=== PATIENT | male | born 1940 | race Caucasian/White ===

== ENCOUNTER 2018-05-13 07:58 | Emergency (ER) | payer OTHER ==
--- OUTSIDE RECORDS SUMMARY | 2018-05-13 08:18 | XMS REPORT ---
:1940 Author Organization eClinicalWorks Care Team Providers Name Role Phone Cristian Morales Provider Role Unavailable Allergies, Adverse Reactions, Alerts Substance Reaction Event Type sulfamethizole Info Not Available Non Drug Allergy Encounters Encounter Location Date cgms results Orlando Pastrana MD Sep 18, 2013 Problems Problem Type Condition ICD-9 Code Onset Dates Condition Status Problem Hyperlipidemia 272.4 Active Assessment Diabetes Type 2 Uncontrolled 250.02 Active Problem Diabetes Type 2 Uncontrolled 250.02 Active Assessment Hyperlipidemia 272.4 Active Assessment Atrial fibrillation 427.31 Active Medications Medication Code System Code Instructions Start Date End Date Status Dosage metformin MULTUM 94193 500 mg orally 2 Active 2 tab(s) times a day Tradjenta MULTUM 523990 5 mg orally once Sep 18, Active 1 tab(s) a day 2012 glipizide MULTUM 31107 5 mg orally twice Inactive 2 tablets a day Plavix MULTUM 75022 75 mg orally once Active 1 tab(s) a day Zocor MULTUM 1546 20 mg orally once Active 1 tab(s) a day (at bedtime) glimepiride MULTUM 06713 4 mg orally once Sep 18, Active 1 tab(s) a day 2013 Keflex MULTUM 1271 250 mg orally 3 Sep 18, Active 1 cap(s) times a day 2012 Social History Social History Element Qualifiers Date Reported Language: . Mexican Sep 18, 2013 Marital Status: . Sep 18, 2013 Caffeine: yes. frequency:, 1 c/day Sep 18, 2013 Exercise: no. Sep 18, 2013 Smoking/Tobacco Use: no. Patient is a: Never Smoker Sep 18, 2013 Alcohol: no. 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 Sep 18, 2013 Family history Qualifier Description Comment Date Reported Maternal Grand Mother Comment not available Sep 18, 2013 Paternal Grand Mother Comment not available Sep 18, 2013 Siblings alive 1 bro, 2 sis Sep 18, 2013 Maternal Grand Father Comment not available Sep 18, 2013 Children alive 2 daughters, 1 son, All Adopted Sep 18, 2013 Father Comment not available Sep 18, 2013 Paternal Grand Father Comment not available Sep 18, 2013 Mother DM Sep 18, 2013 Other: Foster Child Sep 18, 2013 Vital Signs Date/Time: Sep 18, 2013 Weight 183 lbs Height 69 inches Blood Pressure Diastolic 88 mm Hg Blood Pressure Systolic 134 mm Hg Results Finger stick glucose Blood Sugar(- ) FBS 171 Summary Purpose eClinicalWorks Submission
--- OUTSIDE RECORDS SUMMARY | 2018-05-13 08:18 | XMS REPORT ---
:1940 Author Organization eClinicalWorks Care Team Providers Name Role Phone Cristian Morales Provider Role Unavailable Encounters Encounter Location Date Unknown Orlando Pastrana MD Jan 05, 2014 cgms results Orlando Pastrana MD Sep 18, 2013 6wks x dm after cmgs results Orlando Pastrana MD Nov 06, 2013 Unknown Orlando Pastrana MD Dec 04, 2013 Problems Problem Type Condition ICD-9 Code Onset Dates Condition Status Problem BPH (Benign prostatic 600.00 Active hypertrophy) Problem Diabetes Type 2 Uncontrolled 250.02 Active Problem Atrial fibrillation 427.31 Active Problem Hyperlipidemia 272.4 Active Social History Social History Element Qualifiers Date Reported Language: . Estonian Nov 06, 2013 Marital Status: . Nov 06, 2013 Caffeine: yes. frequency:, 1 c/day Nov 06, 2013 Exercise: no. Nov 06, 2013 Smoking/Tobacco Use: no. Patient is a: Never Smoker Nov 06, 2013 Alcohol: no. 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
--- OUTSIDE RECORDS SUMMARY | 2018-05-13 08:18 | XMS REPORT | Continuity of Care Document ---
:1940 Author Organization Interface Problems Problem Status Onset Classification Date Comments Source Date Reported AORTIC Active 05/14/20 Condition 10/29/2013 Medical INSUFFICIENCY 12 Group MITRAL Active 05/14/20 Condition 10/29/2013 Medical REGURGITATION 12 Group Aortic valve Active 05/14/20 Problem 12/02/2017 Data migrated Medical regurgitation<sup 12 from [facility] Group >1</sup> Centricity on 04/26/15. Mitral valve Active 05/14/20 Problem 12/02/2017 Data migrated Medical regurgitation<sup 12 from [employer] Group >4</sup> Centricity on 04/26/15. BPH Active Problem 04/13/2014 Orlando Pastrana Diabetes Type 2 Active Diagnosis 04/13/2014 Orlando Cuellarta Atrial Active Diagnosis 04/13/2014 [place] fibrillation [facility] Hyperlipidemia Active Diagnosis 04/13/2014 Orlando Pastrana Hypothyroidism Active Problem 04/13/2014 Orlando Pastrana Acute pharyngitis Active Diagnosis 04/13/2014 Orlando Pastrana Cough Active Diagnosis 04/13/2014 Orlando Pastrana Edema Active Diagnosis 04/13/2014 Orlando Pastrana ATRIAL Active Condition 10/29/2013 Medical FIBRILLATION Group PALPITATIONS Active Condition 10/29/2013 Medical Group EDEMA Active Condition 10/29/2013 Medical Group Atrial Active Problem 12/02/2017 Data migrated Medical fibrillation<sup> from [facility] Group 2</sup> Centricity on 04/26/15. Diabetes mellitus Active Problem 12/02/2017 Medical Group Edema<sup>3</sup> Active Problem 12/02/2017 Data migrated [facility] from [facility] on 04/26/15. Hyperlipidemia Active Problem 12/02/2017 Medical Group Obesity Active Problem 12/02/2017 Medical Group Palpitations<sup> Active Problem 12/02/2017 Data migrated Medical 5</sup> from [facility] on 04/26/15. Atrial Active Problem 12/02/2017 Medical fibrillation, Group persistent Medications Medication Details Route Status Patient Ordering Order Source Instructions Provider Date apixaban 2.5 MG
2.5 Active Oral Tablet mg=1 tab, 2018 Medical [Eliquis] PO, BID, Group 0 Refill(s) Cheratussin AC 10 ml orally Active 10 mg-100 mg/5 [facility] Orlando mL orally bid 2013 [facility] prn Bydureon 2 mg subcutaneously Active 2 mg [place] subcutaneously 2013 [place] once a week Levothyroxine 1 tab(s) orally Active 25 mcg (0.025 [place] Sodium mg) orally once 2013 [place] a day Flomax 1 cap(s) orally Active 0.4 mg orally Morales once a day 2012 [place] Tradjenta 1 tab(s) orally Active 5 mg orally Morales once a day 2012 [place] glimepiride 1 tab(s) orally Active 4 mg orally Morales once a day 2012 [place] Keflex 1 cap(s) orally Active 250 mg orally 3 Morales times a day 2012 [place] GLYBURIDE 5 MG TAKE TWO No TABS TABLETS Longer 2012 Medical BY MOUTH Active Group TWICE A DAY BEFORE MEALS FUROSEMIDE prn Active 2011 Medical Group GLIPIZIDE XL 2 1 tab BID No MG [id number] Longer 2011 Medical (GLIPIZIDE) Active Group ATENOLOL 50 MG 1 tab BID Active TABS 2011 Medical Group PLAVIX 75 MG 1 tab QD Active TABS 2011 Medical Group METFORMIN HCL 1 tab BID Active 500 MG TABS 2012 Medical Group ASPIRIN 81 MG 1 tab QD Active TABS 2012 Medical Group ZOCOR QD No Longer 2011 Medical Active Group metformin 1 tab(s) orally Active 500 mg orally 2 [facility] Orlando times a day [facility] glipizide 2 tablets orally No 5 mg orally Morales Orlando Longer twice a day [facility] Active Plavix 1 tab(s) orally Active 75 mg orally [place] Orlando once a day [facility] Zocor 1 tab(s) orally Active 20 mg orally [facility] Orlando once a day (at [facility] bedtime) Keflex 1 cap(s) orally No 250 mg orally 3 Morales Orlando Longer times a day [facility] Active glimepiride 1 tab(s) orally Active 4 mg orally [facility] Orlando once a day [facility] Tradjenta 1 tab(s) orally No 5 mg orally Victor[place] Orlando Longer once a day [facility] Active Flomax 1 cap(s) orally Active 0.4 mg orally [place] Orlando once a day [facility] Allergies, Adverse Reactions, Alerts Substance Category Reaction Severity Reaction Status Date Comments Source type Reported SULFA Drug SULFA allergy 2 Medical Group sulfa Assertion Drug Active Data drugs<sup>1< allergy 2 migrated Medical /sup> from [facility] on 06/24/15. Originally documented as SULFA. sulfamethizo Adverse Info Not Adverse Active Orlando le Reaction Available Reaction 4 [place] Immunizations Immunization Date Given Site Status Last Updated Comments Source Results Order Name Results Value Reference Date Interpretation Comments Source Range Chemistry HGBA1C 9.5 % - 5.6 2012 Medical Group Chemistry BUN 21 7 - 22 mg/dL 2012 Medical Group Chemistry CREATININE 1.1 0.5 - 1.4 mg/dL 2012 Medical Group Chemistry SODIUM 140 135 - 145 MEQ/L 2012 Medical mmol/L Group Chemistry POTASSIUM 4.4 3.5 - 5.1 MEQ/L 2012 Medical mmol/L Group Chemistry CALCIUM 8.7 8.5 - 10.5 mg/dL 2012 Medical Group Chemistry HGBA1C 10.5 % 2012 Medical Group Chemistry URIC ACID 4.7 3.8 - 8.0 mg/dL 2012 Medical Group Chemistry SODIUM 140 135 - 145 MEQ/L 2012 Medical mmol/L Group Chemistry POTASSIUM 4.5 3.5 - 5.1 MEQ/L 2012 Medical mmol/L Group Chemistry CREATININE 1.4 0.5 - 1.4 mg/dL 2012 Medical Group Chemistry BUN 25 7 - 22 mg/dL 2012 Medical Group Chemistry BUN/CREAT 18 6 - 25 2012 Medical Group Chemistry ALBUMIN 4.3 3.5 - 5.0 g/dL 2012 Medical Group Chemistry CALCIUM 8.7 8.5 - 10.5 mg/dL 2012 Medical Group Chemistry SGPT (ALT) 26 U/L 0 - 65 2012 Medical Group Chemistry SGOT (AST) 15 U/L 0 - 37 2012 Medical Group Chemistry ALK PHOS 113 U/L 39 - 136 2012 Medical Group Hematology HGB 13.4 14.0 - 18.0 g/dL 2012 Medical Group Hematology HCT 40.6 % 42.0 - 54.0 2012 Medical Group Hematology PLATELETS 160 133 - 450 K/CMM 2012 Medical /mm3 Group Vital Signs Vital Sign Value Date Comments Source Weight 92.727 11/29/2017 Medical Group BMI Calculated 32.02 11/29/2017 Medical Group Heart Rate 71 11/29/2017 Medical Group Systolic (mm Hg) 130 11/29/2017 Medical Group Diastolic (mm Hg) 78 11/29/2017 Medical Group Height 170.18 cm 11/29/2017 Medical Group Weight 190 03/09/2014 Orlando Pastrana Height 69 03/09/2014 Orlando Pastrana Weight 191 01/09/2014 Orlando Pastrana Height 69 01/09/2014 Orlando Pastrana Diastolic (mm Hg) 90 01/09/2014 Orlando Pastrana Systolic (mm Hg) 134 01/09/2014 Orlando Pastrana Weight 188 11/06/2013 Orlando Pastrana Height 69 11/06/2013 Orlando Pastrana Diastolic (mm Hg) 70 11/06/2013 Orlando Pastrana Systolic (mm Hg) 120 11/06/2013 Orlando PerezVictoriano Weight 186 10/28/2013 Medical Group Systolic (mm Hg) 130 10/28/2013 Medical Group Diastolic (mm Hg) 80 10/28/2013 Medical Group Heart Rate 74 10/28/2013 Medical Group Weight 183 09/18/2013 Orlando Pastrana Height 69 09/18/2013 Orlando Pastrana Diastolic (mm Hg) 88 09/18/2013 Orlando Pastrana Systolic (mm Hg) 134 09/18/2013 Orlando Pastrana Height 69 05/14/2012 Medical Group Weight 193 05/14/2012 Medical Group Heart Rate 76 05/14/2012 Medical Group Systolic (mm Hg) 138 05/14/2012 Medical Group Diastolic (mm Hg) 90 05/14/2012 Medical Group Encounters Location Location Encounter Encounter Reason Attending ADM DC Status Source Details Type Number For Provider Date Date Visit marce Pastrana [id number] 09/18 09/18 Orlando Perry MD results [id number]- /2012 [facility] [id number] [place], [facility] [id number] 09/18 09/18 Orlando Perry MD results [id number]- /2012 [place] [id number] [place], [place] [id number] 09/18 09/18 Orlando Perry MD results [id number]- /2012 [place] [id number] Victoriano, [facility] [id number] 09/18 09/18 Orlanod Perry MD results [id number]- /2012 [place] [id number] Victoriano, [facility] [id number] 09/18 09/18 Orlando Perry MD results [id number]- /2012 [place] [id number] Victor[place], [facility] [id number] 09/18 09/18 Orlando Perry MD results [id number]- /2012 [place] [id number] [facility] Lab Report [id number] Tai 10/29 10/29 Toby [address] /2012 Medical Medical MD [facility] Group - [place] Victoriano, 6wks x dm [id number] 11/06 11/06 Orlando Perry MD after cmgs [id number]- /2012 [place] results [id number] Victor[place], 6wks x dm [id number] 11/06 11/06 Orlando Perry MD after cmgs [id number]- /2012 [place] results [id number] Victor[place], 6wks x dm [id number] 11/06 11/06 Orlando Perry MD after cmgs [id number]- /2012 [place] results [id number] Victoriano, 6wks x dm [id number] 11/06 11/06 Orlando Perry MD after cmgs [id number]- /2012 [place] results [id number] Victor[place], 6wks x dm [id number] 11/06 11/06 Orlando Perry MD after cmgs [id number]- /2012 [place] results [id number] Victor[place], Unknown [id number] 12/05 12/05 Orlando Perry MD [id number]- /2013 [place] [id number] Victor[place], Unknown [id number] 12/05 12/05 Orlando Perry MD [id number]- /2013 [place] [id number] [place], Unknown [id number] 12/05 12/05 Orlando Perry MD [id number]- /2013 [place] [id number] Victor[place], Unknown [id number] 12/05 12/05 Orlando Perry MD [id number]- /2013 [place] [id number] [place], Unknown [id number] 01/05 01/05 Oralndo Perry MD [id number]- /2013 [place] [id number] [place], Unknown [id number] 01/05 01/05 Orlando Perry MD [id number]- /2013 [place] [id number] [place], Unknown [id number] 01/05 01/05 Orlando Perry MD [id number]- /2013 [place] [id number] [place], needs to [id number] 01/09 01/09 Orlando Perry MD speak to to [id number]- /2013 [place] figueroa [id number] letter for work Victoriano, needs to [id number] 01/09 01/09 Orlando Perry MD speak to to [id number]- /2013 [place] figueroa [id number] letter for work Victoriano (E) 4 mo DM [id number] 03/09 03/09 Orlando Perry MD [id number]- /2013 [place] [id number] Outpatient [id number] [facility] 07/[address] [facility] [place] Outpatient [id number] [facility] 11/[address] [facility] [place] Outpatient [id number] [facility] 11/[address] [facility] [place] Outpatient [id number] [facility] 05/[address] [facility] [place] Outpatient [id number] [facility] 02/[address] [facility] [place] Outpatient [id number] [facility] 11/29 [facility] Outpatient [id number] [facility] 11/29 11/30 [facility]2017 Medical [facility] Outpatient [id number] [facility] 06/05 [facility] [place] Procedures Procedure Code Date Perfomer Comments Source
--- OUTSIDE RECORDS SUMMARY | 2018-05-13 08:18 | XMS REPORT ---
:1940 Author Organization eClinicalWorks Care Team Providers Name Role Phone Georgette Pastrana Provider Role Unavailable Encounters Encounter Location Date cgms results Orlando [...] History Element Qualifiers Date Reported Language: . Tamazight Nov 06, 2013 Marital Status: . Nov 06, 2013 Caffeine: yes. frequency:, 1 c/day Nov 06, 2013 Exercise: no. Nov 06, 2013 Smoking/Tobacco Use: no. Patient is a: Never Smoker Nov 06, 2013 Alcohol: no. 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
--- OUTSIDE RECORDS SUMMARY | 2018-05-13 08:19 | XMS REPORT ---
:1940 Author Organization eClinicalWorks Care Team Providers Name Role Phone Cristian Morales Provider Role Unavailable Allergies, Adverse Reactions, Alerts Substance Reaction Event Type sulfamethizole Info Not Available Non Drug Allergy Encounters Encounter Location Date Unknown Orlando Pastrana MD Jan 05, 2014 needs to speak to to Dr. figueroa letter for work Orlando Pastrana MD Jan 09, 2014 cgms results Orlando Pastrana MD Sep 18, 2013 6wks x dm after cmgs results Orlando Pastrana MD Nov 06, 2013 Unknown Orlando Pastrana MD Dec 04, 2013 Problems Problem Type Condition ICD-9 Code Onset Dates Condition Status Assessment BPH (Benign prostatic 600.00 Active hypertrophy) Assessment Hyperlipidemia 272.4 Active Assessment Atrial fibrillation 427.31 Active Problem Atrial fibrillation 427.31 Active Problem BPH (Benign prostatic 600.00 Active hypertrophy) Problem Hypothyroidism (acquired) 244.9 Active Assessment Diabetes Type 2 Uncontrolled 250.02 Active Assessment Hypothyroidism (acquired) 244.9 Active Problem Diabetes Type 2 Uncontrolled 250.02 Active Problem Hyperlipidemia 272.4 Active Medications Medication Code System Code Instructions Start End Date Status Dosage Date Plavix MULTUM 31702 75 mg orally Active 1 tab(s) once a day Tradjenta MULTUM 010789 5 mg orally once Active 1 tab(s) a day Zocor MULTUM 1546 20 mg orally Active 1 tab(s) once a day (at bedtime) glimepiride MULTUM 45727 4 mg orally once Active 1 tab(s) a day metformin MULTUM 20099 500 mg orally 2 Active 1 tab(s) times a day Levothyroxine MULTUM 1842 25 mcg (0.025 Jan 09, Active 1 tab(s) Sodium mg) orally once 2013 a day Flomax MULTUM 43965 0.4 mg orally Active 1 cap(s) once a day Social History Social History Element Qualifiers Date Reported Language: . Trinidadian Jan 09, 2014 Marital Status: . Jan 09, 2014 Caffeine: yes. frequency:, 1 c/day Jan 09, 2014 Exercise: no. Jan 09, 2014 Smoking/Tobacco Use: no. Patient is a: Never Smoker Jan 09, 2014 Alcohol: no. 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, 2014 Family history Qualifier Description Comment Date Reported Maternal Grand Mother Comment not available Jan 09, 2014 Paternal Grand Mother Comment not available Jan 09, 2014 Siblings alive 1 bro, 2 sis Jan 09, 2014 Maternal Grand Father Comment not available Jan 09, 2014 Children alive 2 daughters, 1 son, All Adopted Jan 09, 2014 Father Comment not available Jan 09, 2014 Paternal Grand Father Comment not available Jan 09, 2014 Mother DM Jan 09, 2014 Other: Foster Child Jan 09, 2014 Vital Signs Date/Time: Jan 09, 2014 Weight 191 lbs Height 69 inches Blood Pressure Diastolic 90 mm Hg Blood Pressure Systolic 134 mm Hg Results Finger stick glucose Blood Sugar(- ) FBS 177 Summary Purpose eClinicalWorks Submission
--- OUTSIDE RECORDS SUMMARY | 2018-05-13 08:19 | XMS REPORT ---
:1940 Author Organization eClinicalWorks Care Team Providers Name Role Phone Georgette Pastrana Provider Role Unavailable Allergies, Adverse Reactions, Alerts Substance Reaction Event Type sulfamethizole Info Not Available Drug Allergy Encounters Encounter Location Date Unknown Orlando Pastrana MD Jan 05, 2014 needs to speak to to Dr. figueroa letter for work Orlando Pastrana MD Jan 09, 2014 (E) 4 mo DM Orlando Pastrana MD March 09, 2014 cgms results Orlando Pastrana MD Sep 18, 2013 6wks x dm after cmgs results Orlando Pastrana MD Nov 06, 2013 Unknown Orlando Pastrana MD Dec 04, 2013 Problems Problem Type Condition ICD-9 Code Onset Dates Condition Status Assessment Atrial fibrillation 427.31 Active Assessment Hyperlipidemia 272.4 Active Assessment Acute pharyngitis 462 Active Problem Atrial fibrillation 427.31 Active Problem BPH (Benign prostatic 600.00 Active hypertrophy) Problem Hypothyroidism (acquired) 244.9 Active Assessment Diabetes Type 2 Uncontrolled 250.02 Active Assessment Hypothyroidism (acquired) 244.9 Active Problem Diabetes Type 2 Uncontrolled 250.02 Active Problem Hyperlipidemia 272.4 Active Assessment Cough 786.2 Active Assessment Edema 782.3 Active Assessment BPH (Benign prostatic 600.00 Active hypertrophy) Medications Medication Code Code Instructions Start End Status Dosage System Date Date glimepiride MULTUM 46191 4 mg orally once a Active 1 tab(s) day Zocor MULTUM 1546 20 mg orally once Active 1 tab(s) a day (at bedtime) Plavix MULTUM 72775 75 mg orally once Active 1 tab(s) a day Flomax MULTUM 03362 0.4 mg orally once Active 1 cap(s) a day metformin MULTUM 59606 500 mg orally 2 Active 1 tab(s) times a day Cheratussin AC MULTUM 4268 10 mg-100 mg/5 mL February Active 10 ml orally bid prn 2013 Levothyroxine MULTUM 1842 25 mcg (0.025 mg) Jan 09, Active 1 tab(s) Sodium orally once a day 2013 Giovani PIZARRO 319154 2 mg February 2 mg subcutaneously 2013 once a week Chris PIZARRO 137992 5 mg orally once a Inactive 1 tab(s) day Social History Social History Element Qualifiers Date Reported Language: . Uzbek March 09, 2014 Marital Status: . March 09, 2014 Caffeine: yes. frequency:, 1 c/day March 09, 2014 Exercise: no. March 09, 2014 Smoking/Tobacco Use: no. Patient is a: Never Smoker March 09, 2014 Alcohol: no. March 09, 2014 Occupation: employed. 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
--- OUTSIDE RECORDS SUMMARY | 2018-05-13 08:19 | XMS REPORT | Summary of Care ---
:1940 Author Organization [facility] Cardiology [facility] Address [address] [place] [address], [facility] [address] [place] [address]- Encounter [facility] Patti(FIN) [id number] Date(s): 11/29/17 - 11/29/[address], [facility] [address] [place] [address]- [phone] Discharge Disposition: Home or Self Care Attending Physician: Tai Lai MD Referring Physician: Tai Thomson MD Vital Signs Most recent to oldest [Reference Range]: 1 Height 170.18 cm (11/29/17 10:12 AM) Blood Pressure [90-140/60-90 mmHg] 130/78 mmHg (11/29/17 10:12 AM) Peripheral Pulse Rate [60-100 bpm] 71 bpm (11/29/17 10:12 AM) Weight 92.727 kg (11/29/17 10:12 AM) Body Mass Index 32.02 m2 (11/29/17 10:12 AM) Problem List Condition Effective Dates Status Health Status Informant Aortic valve regurgitation1 05/14/12 Active Atrial fibrillation2 Active Diabetes mellitus(Confirmed) Active Edema3 Active Hyperlipidemia(Confirmed) Active Mitral valve regurgitation4 05/14/12 Active Obesity(Confirmed) Active Palpitations5 Active Atrial fibrillation, Active persistent(Confirmed) 1Data migrated from [employer] on 04/26/15.2Data migrated from [employer] on 04/26/15.3Data migrated from [employer] on 04/26/15.4Data migrated from [employer] on 04/26/15.5Data migrated from [employer] on 04/26/15. Allergies, Adverse Reactions, Alerts Substance Reaction Severity Status sulfa drugs1 Active 1Data migrated from [employer] on 06/24/15. Originally documented as SULFA. Medications Eliquis 2.5 mg oral tablet 2.5 mg=1 tab, PO, BID, 0 Refill(s) Start Date: 11/29/17 Status: Ordered Results No data available for this section Immunizations No data available for this section Procedures No data available for this section Social History Social History Type Response Smoking Status Never smoker; Exposure to Tobacco Smoke None; Cigarette Smoking Last 365 Days No; Reg Smoking Cessation Counseling No Assessment and Plan No data available for this section
--- OUTSIDE RECORDS SUMMARY | 2018-05-13 08:19 | XMS REPORT | Continuity of Care Document ---
:1940 Author Organization [facility] Care Team Providers Name Role Phone Tai Thomsno MD Unavailable Unavailable Insurance Providers Payer name Policy type / Policy ID Covered constitution party ID Policy Perez Coverage type [place] [employer] (MEDIC [place] [employer] [place] [employer] [place] [employer] Encounters Encounter Performer Location Date Lab Report Tai Thomson MD [facility] - Oct 29, 2013 [place] Allergies, Adverse Reactions, Alerts Type Substance Reaction Status Drug allergy SULFA Active Problems Problem Effective Dates Problem Status ATRIAL FIBRILLATION Active AORTIC INSUFFICIENCY May 14, 2012 Active MITRAL REGURGITATION May 14, 2012 Active PALPITATIONS Active EDEMA Active Procedures Date Description Comments May 14, 2012 smoking status never smoker Medications Medication Instructions Start Date Status ATENOLOL 50 MG TABS 1 tab BID May 10, 2012 Active PLAVIX 75 MG TABS 1 tab QD May 10, 2012 Active METFORMIN HCL 500 MG TABS 1 tab BID May 10, 2012 Active ASPIRIN 81 MG TABS 1 tab QD May 10, 2012 Active FUROSEMIDE prn May 14, 2012 Active GLIPIZIDE XL 2 MG QU13X-GNM 1 tab BID May 14, 2012 Inactive (GLIPIZIDE) GLYBURIDE 5 MG TABS TAKE TWO TABLETS BY MOUTH TWICE Jul 11, 2013 Inactive A DAY BEFORE MEALS ZOCOR QD May 10, 2012 Inactive Vital Signs Date Description Test Result May 14, 2012 height E&M - 8302-2 HEIGHT 69 in May 14, 2012 weight E&M - 3141-9 WEIGHT 193 lb May 14, 2012 pulse rate E&M - 8867-4 PULSE RATE 76 /min May 14, 2012 blood pressure, systolic, sitting, right arm BP SYS SIT R 138 null May 14, 2012 blood pressure, diastolic, sitting, right arm BP PRECIOUS SIT R 90 mmHg May 14, 2012 pulse rate, sitting, right PULSE SIT R 76 /min Oct 28, 2013 weight E&M - 3141-9 WEIGHT 186 lb Oct 28, 2013 blood pressure, systolic, sitting, right arm BP SYS SIT R 130 null Oct 28, 2013 blood pressure, diastolic, sitting, right arm BP PRECIOUS SIT R 80 mmHg Oct 28, 2013 pulse rate, sitting, right PULSE SIT R 74 /min Oct 28, 2013 blood pressure, systolic - 8480-6 BP SYSTOLIC 130 mm Hg Oct 28, 2013 pulse rate E&M - 8867-4 PULSE RATE 74 /min Oct 28, 2013 blood pressure, diastolic - 8462-4 BP DIASTOLIC 80 mm Hg Results Date Description Test Name Value Reference Interpretation Status Dec 17, hemoglobin, blood HGB 13.4 g/dL 14.0-18.0 Low 2012Dec 17, hematocrit, blood HCT 40.6 % 42.0-54.0 Low 2012Dec 17, platelet count PLATELETS 160 K/CMM 834-488 8613 /mm3 Dec 17, hemoglobin A1C, blood, HGBA1C 10.5 % 2012 as % of total hemoglobin Dec 17, uric acid, serum URIC ACID 4.7 mg/dL 3.8-8.0 2012Dec 17, sodium, serum SODIUM 140 MEQ/L 204-377 9263 mmol/L Dec 17, potassium, serum POTASSIUM 4.5 MEQ/L 3.5-5.1 2012 mmol/L Dec 17, creatinine, serum CREATININE 1.4 mg/dL 0.5-1.4 2012Dec 17, urea nitrogen, blood BUN 25 mg/dL - High 2012Dec 17, urea BUN/CREAT 18 null 6-25 2012 nitrogen/creatinine ratio, serum Dec 17, albumin, serum ALBUMIN 4.3 g/dL 3.5-5.0 2012Dec 17, calcium, serum CALCIUM 8.7 mg/dL 8.5-10.5 2012Dec 17, alanine SGPT (ALT) 26 U/L 0-65 2012 aminotransferase (SGPT), serum Dec 17, aspartate SGOT (AST) 15 U/L 0-37 2012 aminotransferase (SGOT), serum Dec 17, alkaline phosphatase, ALK PHOS 113 U/L 39-136 2012 serum Jul 07, hemoglobin A1C, blood, HGBA1C 9.5 % <=5.6 High 2012 as % of total hemoglobin Jul 07, urea nitrogen, blood BUN 21 mg/dL -2012Jul 07, creatinine, serum CREATININE 1.1 mg/dL 0.5-1.4 2012Jul 07, sodium, serum SODIUM 140 MEQ/L 527-915 4802 mmol/L Jul 07, potassium, serum POTASSIUM 4.4 MEQ/L 3.5-5.1 2012 mmol/L Jul 07, calcium, serum CALCIUM 8.7 mg/dL 8.5-10.5 2012
--- OUTSIDE RECORDS SUMMARY | 2018-05-13 08:19 | XMS REPORT ---
:1940 Author Organization [employer] Care Team Providers Name Role Phone Cristian Morales Provider Role Unavailable Allergies, Adverse Reactions, Alerts Substance Reaction Event Type sulfamethizole Info Not Available Non Drug Allergy Encounters Encounter Location Date cgms results Orlando Pastrana MD Sep 18, 2013 6wks x dm after cmgs results Orlando Psatrana MD Nov 06, 2013 Problems Problem Type Condition ICD-9 Code Onset Dates Condition Status Assessment BPH (Benign prostatic 600.00 Active hypertrophy) Problem BPH (Benign prostatic 600.00 Active hypertrophy) Problem Diabetes Type 2 Uncontrolled 250.02 Active Problem Atrial fibrillation 427.31 Active Assessment Hyperlipidemia 272.4 Active Assessment Atrial fibrillation 427.31 Active Problem Hyperlipidemia 272.4 Active Assessment Diabetes Type 2 Uncontrolled 250.02 Active Medications Medication Code System Code Instructions Start Date End Date Status Dosage Zocor MULTUM 1546 20 mg orally once Active 1 tab(s) a day (at bedtime) Keflex MULTUM 1271 250 mg orally 3 Inactive 1 cap(s) times a day metformin MULTUM 97585 500 mg orally 2 Active 2 tab(s) times a day glimepiride MULTUM 19869 4 mg orally once Active 1 tab(s) a day Plavix MULTUM 90296 75 mg orally once Active 1 tab(s) a day Tradjenta MULTUM 179612 5 mg orally once Active 1 tab(s) a day Flomax MULTUM 92415 0.4 mg orally Nov 06, Active 1 cap(s) once a day 2012 Social History Social History Element Qualifiers Date Reported Language: . Turkish Nov 06, 2013 Marital Status: . Nov 06, 2013 Caffeine: yes. frequency:, 1 c/day Nov 06, 2013 Exercise: no. Nov 06, 2013 Smoking/Tobacco Use: no. Patient is a: Never Smoker Nov 06, 2013 Alcohol: no. 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, 2013 Family history Qualifier Description Comment Date Reported Maternal Grand Mother Comment not available Nov 06, 2013 Paternal Grand Mother Comment not available Nov 06, 2013 Siblings alive 1 bro, 2 sis Nov 06, 2013 Maternal Grand Father Comment not available Nov 06, 2013 Children alive 2 daughters, 1 son, All Adopted Nov 06, 2013 Father Comment not available Nov 06, 2013 Paternal Grand Father Comment not available Nov 06, 2013 Mother DM Nov 06, 2013 Other: Foster Child Nov 06, 2013 Vital Signs Date/Time: Nov 06, 2013 Weight 188 lbs Height 69 inches Blood Pressure Diastolic 70 mm Hg Blood Pressure Systolic 120 mm Hg Results Finger stick glucose Blood Sugar(- ) FBS-139 Summary Purpose [employer] Submission
[2018-05-13 08:56] LABS: Absolute Lymphocytes (CBC) 0.9 K/uL (0.7-4.9); Absolute Neutrophil 15.4 K/uL (1.8-8.0); Basophils % 0.3 % (0-1.3); Eosinophils % 0.2 % (0-4.4); Hematocrit 33.2 % (39.6-49.0); Lymphocytes % 5.4 % (15.3-44.8); MCH 29.3 pg (27.0-35.0); MCV 87.2 fL (80-100); MPV 9.9 fL (7.6-11.3); Monocytes % 5.6 % (3.3-12.3)
[2018-05-13 08:59] LABS: Protime INR 1.08
[2018-05-13] MEDS ORDERED: METOPROLOL TARTRATE 5 MG/5 ML INJ IV ONE (09:02)
[2018-05-13 09:11] LABS: Potassium 4.3 mEq/L (3.6-5.0)
[2018-05-13 09:17] LABS: Albumin 3.5 g/dL (3.2-5.5); Bilirubin Direct 0.2 mg/dL (0-0.2); Bilirubin Total 0.8 mg/dL (0.3-1.2); Magnesium 1.6 mg/dL (1.8-2.5)
--- NOTE | 2018-05-13 09:42 | EKG ---
Test Date: 2018-05-13 Test Time: 08:31:32 Primary Care Provider: RONAK MEASUREMENT RESULTS: Intervals: Rate: 112 [place]: QRSD: 74 QT: 268 QTc: 365 [place]: P: [place]: QRS: 32 T: 47 INTERPRETIVE STATEMENTS: Atrial fibrillation with rapid ventricular response Abnormal ECG No previous ECG available for comparison Electronically Signed On 05-13-18 09:42:45 CDT by Chay Ku
[2018-05-13 09:56] LABS: Blood Morphology Comment NOT SEEN (NOT SEEN); Platelet Estimate ADEQ; Urine White Blood Cell Casts OK
--- NOTE | 2018-05-13 09:57 | RAD REPORT ---
EXAM DESCRIPTION: VAS - Extremity Venous Uni Ltd - 05/13/2018 9:44 am CLINICAL HISTORY: Leg pain and swelling COMPARISON: None. TECHNIQUE: Real-time sonographic evaluation of the right lower extremity deep venous systems was per formed. FINDINGS: Normal compressibility, flow augmentation, phasic flow and spontaneous flow are identified in the right lower extremity deep venous system. No intraluminal filling defects seen. IMPRESSION: No DVT in the right lower extremity.
--- NOTE | 2018-05-13 09:59 | RAD REPORT ---
EXAM DESCRIPTION: VAS - Lower Extremity Artery Uni Ltd - 05/13/2018 9:45 am CLINICAL HISTORY: Leg pain COMPARISON: None. TECHNIQUE: Waveforms were obtained along the length of the right lower extremity. Visual inspection of the lower extremity arterial tree performed. FINDINGS: Triphasic waveforms were seen along the length of the right lower extremity. No occlusion, flow restricting lesion or significant arterial disease identifiable. Right common femoral velocity was 136 cm/seconds tapering into the femoral artery. Femoral artery velocity values range from 70-83 cm/second. Popliteal artery velocity was 55 cm/second with the posterior tibial and dorsalis pedis ar steven velocities measuring 56 cm/second and 22 cm/second, respectively. IMPRESSION: No significant lower extremity peripheral vascular disease. No occlusion or flow restric ting lesion identifiable.
--- NOTE | 2018-05-13 10:56 | EDPHYS ---
Physician Documentation [facility] Name: Gen Guadalupe Age: 78 yrs Sex: Male : 1940 Arrival Date: 05/13/2018 Time: 08:03 Bed 6 Private MD: Geoffrey Iglesias ED Physician Alfredo Araya HPI: 05/13 10:49 This 78 yrs old Male presents to ER via Ambulatory with complaints of Feet gs Swelling. 10:49 The patient presents with pain, that is acute, a rash, erythematous. The complaints gs affect the right mendez. Onset: The symptoms/episode began/occurred 2 day(s) ago, and became worse and became persistent. Modifying factors: the symptoms are aggravated by nothing. Associated signs and symptoms: Pertinent negatives fever, tingling, weakness. Severity of symptoms: At their worst the symptoms were moderate, in the emergency department the symptoms are unchanged. Historical: - Allergies: 08:09 Sulfa (Sulfonamide Antibiotics); hj - Home Meds: 08:09 Eliquis 2.5 mg oral tab 1 tab 2 times per day [Active]; Metoprolol Tartrate Oral hj [Active]; Insulin: Regular Sub-Q [Active]; - PMHx: 08:09 Atrial Fib; Diabetes - NIDDM; hj - PSHx: 08:09 None; hj - Immunization history:: Adult Immunizations up to date. - Social history:: Smoking status: Patient/guardian denies using tobacco, Patient/guardian denies using alcohol. - Ebola Screening: : Patient negative for fever greater than or equal to 101.5 degrees Fahrenheit, and additional compatible Ebola Virus Disease symptoms Patient denies exposure to infectious person Patient denies travel to an Ebola-affected area in the 21 days before illness onset. ROS: 10:49 All other systems are negative. gs Exam: 10:49 Head/Face: Normocephalic, atraumatic. Eyes: Pupils equal round and reactive to light, gs extra-ocular motions intact. Lids and lashes normal. Conjunctiva and sclera are non-icteric and not injected. Cornea within normal limits. Periorbital areas with no swelling, redness, or edema. ENT: Nares patent. No nasal discharge, no septal abnormalities noted. Tympanic membranes are normal and external auditory canals are clear. Oropharynx with no redness, swelling, or masses, exudates, or evidence of obstruction, uvula midline. Mucous membranes moist. Neck: Trachea midline, no thyromegaly or masses palpated, and no cervical lymphadenopathy. Supple, full range of motion without nuchal rigidity, or vertebral point tenderness. No Meningismus. Chest/axilla: Normal chest wall appearance and motion. Nontender with no deformity. No lesions are appreciated. 10:49 Respiratory: Lungs have equal breath sounds bilaterally, clear to auscultation and percussion. No rales, rhonchi or wheezes noted. No increased work of breathing, no retractions or nasal flaring. Abdomen/GI: Soft, non-tender, with normal bowel sounds. No distension or tympany. No guarding or rebound. No evidence of tenderness throughout. Back: No spinal tenderness. No costovertebral tenderness. Full range of motion. Neuro: Awake and alert, GCS 15, oriented to person, place, time, and situation. Cranial nerves II-XII grossly intact. Motor strength 5/5 in all extremities. Sensory grossly intact. Cerebellar exam normal. Normal gait. 10:49 Constitutional: The patient appears alert, awake. 10:49 Cardiovascular: Rate: tachycardic, Rhythm: irregularly irregular, Pulses: no pulse deficits are appreciated. 10:49 Musculoskeletal/extremity: Extremities: erythema, pain, swelling, tenderness, Circulation is intact in all extremities. Sensation intact. DVT Exam: pain, swelling, tenderness, positive Homans' sign noted on exam, bluish discoloration, erythema, increased warmth, of the right leg. 10:49 Skin: cellulitis, that is moderate, on the right mendez and right leg. Vital Signs: 08:10 BP 126 / 92; Pulse 148; Resp 18; Temp 98.4(O); Pulse Ox 96% on R/A; Weight 86.18 kg; hj Height 5 ft. 9 in. (175.26 cm); Pain 10/10; 08:59 BP 139 / 87; Pulse 108; Resp 16; Pulse Ox 100% ; jl7 09:45 BP 112 / 75; Pulse 93; Resp 16; Pulse Ox 100% ; jl7 10:15 BP 129 / 93; Pulse 98; Resp 16; Pulse Ox 99% ; jl7 10:52 BP 125 / 82; Pulse 100; Resp 16 S; Pulse Ox 98% on R/A; jl7 08:10 Body Mass Index 28.06 (86.18 kg, 175.26 cm) MDM: 08:46 Patient medically screened. 10:49 Differential diagnosis: cellulitis, dvt, arterial occlusion, afib with rvr. Data gs reviewed: vital signs, nurses notes. Response to treatment: the patient's symptoms have markedly improved after treatment, and as a result, I will discharge patient. 05/13 08:34 Order name: Basic Metabolic Panel; Complete Time: 09:59 05/13 08:34 Order name: BNP; Complete Time: 09:59 05/13 08:34 Order name: CBC with Diff; Complete Time: 09:59 05/13 08:34 Order name: LFT's; Complete Time: 09:59 05/13 08:34 Order name: Magnesium; Complete Time: 09:59 05/13 08:34 Order name: PT-INR; Complete Time: 09:59 05/13 08:19 Order name: EKG; Complete Time: 08:20 05/13 08:34 Order name: Troponin (emerg Dept Use Only); Complete Time: 09:59 05/13 08:47 Order name: Glucose, Ancillary Testing; Complete Time: 09:59 EDMS 05/13 08:52 Order name: US Extremity Venous Unilateral Ltd; Complete Time: 09:59 05/13 08:52 Order name: Lower Extremity Artery Uni Ltd; Complete Time: 10:00 05/13 09:11 Order name: CBC Smear Scan; Complete Time: 09:59 EDMS 05/13 08:34 Order name: Cardiac monitoring; Complete Time: 08:42 05/13 08:34 Order name: EKG - Nurse/Tech; Complete Time: 08:42 05/13 08:34 Order name: IV Saline Lock; Complete Time: 08:42 05/13 08:34 Order name: Labs collected and sent; Complete Time: 08:42 05/13 08:34 Order name: O2 Per Protocol; Complete Time: 08:42 05/13 08:34 Order name: O2 Sat Monitoring; Complete Time: 08:42 gs Administered Medications: 09:03 Drug: Lopressor 5 mg Route: IVP; Site: right forearm; jl7 09:30 Follow up: Response: No adverse reaction jl7 Disposition: 05/13/18 10:55 Discharged to Home. Impression: Cellulitis of right lower limb. - Condition is Stable. - Discharge Instructions: Cellulitis. - Prescriptions for Keflex 500 mg Oral Capsule - take 1 capsule by ORAL route every 6 hours for 10 days; 40 capsule. - Medication Reconciliation Form, Thank You Letter, Antibiotic Education, Prescription Opioid Use form. - Follow up: Private Physician; When: 2 - 3 days; Reason: Re-evaluation by your physician. Signatures: Dispatcher [employer] [facility] Holden Martinez, RN RN Ethel Jefferson RN RN jl7 Alfredo Araya MD MD gs Corrections: (The following items were deleted from the chart) 08:53 08:34 Chest Single View+RAD.RAD.BRZ ordered. [facility] 11:20 10:55 05/13/2018 10:55 Discharged to Home. Impression: Cellulitis of right lower limb. jl7 Condition is Stable. Forms are Medication Reconciliation Form, Thank You Letter, Antibiotic Education, Prescription Opioid Use. Follow up: Private Physician; When: 2 - 3 days; Reason: Re-evaluation by your physician. gs
--- NOTE | 2018-05-13 10:56 | ER ---
Nurse's Notes [facility] Name: Gen Guadalupe Age: 78 yrs Sex: Male : 1940 Arrival Date: 05/13/2018 Time: 08:03 Bed 6 Private MD: Geoffrey Iglesias Diagnosis: Cellulitis of right lower limb Presentation: 05/13 08:04 Presenting complaint: Patient states: i fell and hit my R ankle and R lower leg about hj 10 days ago and 5 to 6 days ago, my legs started swelling and the pain is becoming worse and is caleb warm; pain is 10/10; denies numbness, reports tingling;. Transition of care: patient was not received from another setting of care. Onset of symptoms was May 13, 2018. Risk Assessment: Do you want to hurt yourself or someone else? Patient reports no desire to harm self or others. Initial Sepsis Screen: Does the patient meet any 2 criteria? No. Patient's initial sepsis screen is negative. Does the patient have a suspected source of infection? No. Patient's initial sepsis screen is negative. Care prior to arrival: None. 08:04 Method Of Arrival: Ambulatory 08:04 Acuity: CATHY 3 hj Triage Assessment: 08:09 General: Appears in no apparent distress. uncomfortable, Behavior is calm, cooperative, hj appropriate for age. Pain: Complains of pain in right leg. Historical: - Allergies: 08:09 Sulfa (Sulfonamide Antibiotics); hj - Home Meds: 08:09 Eliquis 2.5 mg oral tab 1 tab 2 times per day [Active]; Metoprolol Tartrate Oral hj [Active]; Insulin: Regular Sub-Q [Active]; - PMHx: 08:09 Atrial Fib; Diabetes - NIDDM; hj - PSHx: 08:09 None; hj - Immunization history:: Adult Immunizations up to date. - Social history:: Smoking status: Patient/guardian denies using tobacco, Patient/guardian denies using alcohol. - Ebola Screening: : Patient negative for fever greater than or equal to 101.5 degrees Fahrenheit, and additional compatible Ebola Virus Disease symptoms Patient denies exposure to infectious person Patient denies travel to an Ebola-affected area in the 21 days before illness onset. Screenin:10 Abuse screen: Denies threats or abuse. Denies injuries from another. Nutritional hj screening: No deficits noted. Tuberculosis screening: No symptoms or risk factors identified. Fall Risk Fall in past 12 months (25 points). Assessment: 08:39 General: Appears in no apparent distress. uncomfortable, Behavior is calm, cooperative, jl7 appropriate for age. Pain: Complains of pain in right mendez and anterior aspect of right ankle Pain does not radiate. Pain currently is 10 out of 10 on a pain scale. Pain began 2-3 days ago. Is continuous. Neuro: Level of Consciousness is awake, alert, obeys commands, Oriented to person, place, time, situation. Cardiovascular: Heart tones S1 S2 present Patient's skin is warm and dry. Respiratory: Airway is patent Respiratory effort is even, unlabored, Respiratory pattern is regular, symmetrical. GI: No signs and/or symptoms were reported involving the gastrointestinal system. : No signs and/or symptoms were reported regarding the genitourinary system. EENT: No signs and/or symptoms were reported regarding the EENT system. Derm: Skin is pink, warm \T\ dry. Musculoskeletal: Circulation, motion, and sensation intact. Swelling present in right lower extremity. 09:30 Reassessment: No changes from previously documented assessment. Patient and/or family jl7 updated on plan of care and expected duration. Pain level reassessed. Patient is alert, oriented x 3, equal unlabored respirations, skin warm/dry/pink. 10:30 Reassessment: Patient and/or family updated on plan of care and expected duration. Pain jl7 level reassessed. Patient is alert, oriented x 3, equal unlabored respirations, skin warm/dry/pink. Vital Signs: 08:10 BP 126 / 92; Pulse 148; Resp 18; Temp 98.4(O); Pulse Ox 96% on R/A; Weight 86.18 kg; hj Height 5 ft. 9 in. (175.26 cm); Pain 10/10; 08:59 BP 139 / 87; Pulse 108; Resp 16; Pulse Ox 100% ; jl7 09:45 BP 112 / 75; Pulse 93; Resp 16; Pulse Ox 100% ; jl7 10:15 BP 129 / 93; Pulse 98; Resp 16; Pulse Ox 99% ; jl7 10:52 BP 125 / 82; Pulse 100; Resp 16 S; Pulse Ox 98% on R/A; jl7 08:10 Body Mass Index 28.06 (86.18 kg, 175.26 cm) ED Course: 08:03 Patient arrived in ED. mr 08:04 Geoffrey Iglesias MD is Private Physician. mr 08:07 Triage completed. hj 08:10 Arm band placed on right wrist. hj 08:10 Patient has correct armband on for positive identification. hj 08:15 Alfredo Araya MD is Attending Physician. gs 08:39 Ethel Jefferson RN is Primary Nurse. jl7 08:39 No provider procedures requiring assistance completed. Initial lab(s) drawn, by ct, jl7 sent to lab. Inserted saline lock: 20 gauge in right forearm, using aseptic technique. Blood collected. 09:19 EKG done, by manufacturing production technician. reviewed by Alfredo Araya MD. tc 09:30 Patient taken to ultrasound. via stretcher. aa4 09:44 US Extremity Venous Unilateral Ltd In Process Unspecified. EDMS 09:44 US Lower Extremity Artery Uni Ltd In Process Unspecified. EDMS 11:19 IV discontinued, intact, bleeding controlled, No redness/swelling at site. Pressure jl7 dressing applied. Administered Medications: 09:03 Drug: Lopressor 5 mg Route: IVP; Site: right forearm; jl7 09:30 Follow up: Response: No adverse reaction jl7 Outcome: 10:55 Discharge ordered by . gs 11:19 Discharged to home ambulatory, with family. jl7 11:19 Condition: stable 11:19 Discharge instructions given to patient, family, Instructed on discharge instructions, follow up and referral plans. medication usage, Demonstrated understanding of instructions, follow-up care, medications, Prescriptions given X 1. 11:20 Patient left the ED. jl7 Signatures: Dispatcher [employer] [facility] Sherita Hsu Amanda aa4 Mercedez Griffiths, decal cutter EKG Ttc Holden Martinez RN Ethel Armstrong RN RN jlAlfredo Gruber MD MD Corrections: (The following items were deleted from the chart) 08:14 08:04 Acuity: CATHY 4 hj hj 08:20 08:10 BP 126 / 92; Pulse 137bpm; Resp 18bpm; Pulse Ox 96% RA; Temp 98.4F Oral; 86.18 hj kg; Height 5 ft. 9 in.; BMI: 28.0; Pain 10/10; hj
== END 2018-05-13 11:20 | disposition home or self-care (01) ==
LOC: ER 07:58
DX: L03.115 Cellulitis of right lower limb (principal); E11.9 Type 2 diabetes mellitus without complications; I48.91 Unspecified atrial fibrillation; Z79.4 Long term (current) use of insulin; Z88.2 Allergy status to sulfonamides
CPT/HCPCS: 36415; 80048; 80076; 82962; 83735; 83880; 84484; 85025; 85610; 93005; 93926; 93971; 96374; 99284